=== PATIENT | male | born 1975 | race Caucasian/White ===

== ENCOUNTER 2024-07-25 11:47 | Outpatient (CLI) | payer BC, SELFPAY ==
--- NOTE | 2024-07-25 | ECG_ITS ---
[facility] Test Date: 2024-07-25 Pat Name: Doug Chacon Department: Room: Gender: Male Medical Technician Assistant: : [id number] Requested By: Darin Jacobson Order Number: [id number] MD: Aguila Avendano M.D. Interpretive Statements PROCEDURE: At the baseline, the patient's blood pressure was 133/60 with a heart rate of 60. The baseline electrocardiogram showed normal sinus rhythm with normal ST-Ts. Features of right ventricular conduction delay. Poor R wave progression. The patient exercised for 12-minute on a standard Rao protocol. Patient attained a maximum heart rate of 177 beats per minute(102% of the maximum predicted heart rate) with a blood pressure at the peak exercise of 153/87 mm Hg. The EKG at the peak exercise revealed no significant changes. Occasional PVCs were noted at the peak exercise. Patient did not have any chest pain or any significant changes with the exercise. During the recovery phase, there were no new changes. Blood pressure at the end of the recovery phase was 164/82 mm Hg with a heart rate of 99 per minute. CONCLUSION: 1. Normal EKG response to treadmill exercise 2. No exercise-induced chest pain . Exercise-induced occasional PVCs 3. Fair exercise tolerance, attained a maximum of 13.5 METs Lung unchanged pre/post procedure; Intraprocedure shortess of breath; Symptoms resoled by discharge Electronically Signed On 07-31-2024 19:12:26 CDT by Aguila Avendano M.[email or web address]
[2024-07-25 12:03] VITALS: BMI 27.9
[2024-07-25 12:45] VITALS: BP 162/88; PULSE 99
== END 2024-07-25 11:48 | disposition home or self-care (01) ==
PROVIDERS: PCP Family Medicine; Visit Provider Family Medicine
DX: I47.10 Supraventricular tachycardia, unspecified (principal); R06.02 Shortness of breath
CPT/HCPCS: 93017